=== PATIENT | female | born 1995 | race Caucasian/White ===

== ENCOUNTER 2018-10-10 11:19 | Emergency (ER) | payer MEDICAID, OTHER ==
[~2018-10-10] VITALS: Ht 165.1 cm; Wt 49.9 kg
[2018-10-10 11:19] VITALS: BP 106/55
--- NOTE | 2018-10-10 12:09 | NUR ---
DR STOVER AT BEDSIDE FOR EVAL
== END 2018-10-10 12:25 | disposition home or self-care (01) ==
LOC: ER 11:21
DX: J40 Bronchitis, not specified as acute or chronic (principal); F31.9 Bipolar disorder, unspecified; F17.200 Nicotine dependence, unspecified, uncomplicated
CPT/HCPCS: 99283; A4606